=== PATIENT | female | born 2000 | race Caucasian/White ===

== ENCOUNTER → 2024-04-02 | Outpatient (REF) | payer BC ==
[~2024-04-02] MED LIST: IOPAMIDOL 370 MG/ML 100 ML INFUS..BTL INJ ONE
== END ==
LOC: CT 15:41
PROVIDERS: ATTEND Internal Medicine Gastroenterology
DX: R10.9 Unspecified abdominal pain (principal); R19.7 Diarrhea, unspecified; R79.82 Elevated C-reactive protein (CRP)
CPT/HCPCS: 74177; 81025; Q9967

== ENCOUNTER → 2024-05-11 | Day surgery (SDC) | payer BC ==
[~2024-05-11] MED LIST changes: +ACYCLOVIR200 MG PO; +B-12 SHOT; +FENTANYL CITRATE/PF 100MCG/2 ML INJ ONE; -IOPAMIDOL 370 MG/ML 100 ML INFUS..BTL INJ ONE; +KEPPRA750 MG PO; +LIDOCAINE HCL 2% LOCAL INJ 5 ML SDV VIAL INJ ONE; +MIDAZOLAM HCL 2 MG/2 ML VIAL ONE; +PANTOPRAZOLE SO40 MG PO; +PROPOFOL IV EMULSION 10 MG/ML 20 ML VIAL ONE; +PROPOFOL IV EMULSION 50 ML IV ONE; +VITAMIN B-650 MG PO
[2024-05-11] MEDS: LACTATED RINGER'S 1,000 ML ONE (12:42)
[2024-05-11 15:03] VITALS: TEMP 98.7
[2024-05-11 15:30] VITALS: BP 106/71; PULSE 84; RESP 16; O2SAT 100
== END | disposition home or self-care (01) ==
LOC: OR 10:34
PROVIDERS: ATTEND Internal Medicine Gastroenterology
DX: K62.5 Hemorrhage of anus and rectum (principal); Z86.0100 Personal history of colon polyps, unspecified; K31.7 Polyp of stomach and duodenum; K29.70 Gastritis, unspecified, without bleeding; K29.80 Duodenitis without bleeding; K31.89 Other diseases of stomach and duodenum; K21.9 Gastro-esophageal reflux disease without esophagitis; K44.9 Diaphragmatic hernia without obstruction or gangrene; R19.7 Diarrhea, unspecified; Z87.19 Personal history of other diseases of the digestive system; K76.89 Other specified diseases of liver; R93.5 Abnormal findings on diagnostic imaging of other abdominal regions, including retroperitoneum; K86.9 Disease of pancreas, unspecified; R79.82 Elevated C-reactive protein (CRP); N39.0 Urinary tract infection, site not specified; N80.9 Endometriosis, unspecified; G40.909 Epilepsy, unspecified, not intractable, without status epilepticus; F41.9 Anxiety disorder, unspecified; F32.A Depression, unspecified; Z79.899 Other long term (current) drug therapy; Z68.31 Body mass index [BMI] 31.0-31.9, adult
CPT/HCPCS: 43239; 43251; 45380; 81025; J2003; J2250; J2704 ×2; J3010; J7121